=== PATIENT | male | born 1990 | race African-American/Black ===

== ENCOUNTER 2022-02-04 10:50 | Emergency (ER) | payer OTHER, SELFPAY ==
[2022-02-04 11:02] VITALS: BP 134/76; PULSE 70; RESP 16; TEMP 36.6; O2SAT 99
--- NOTE | 2022-02-04 11:23 | ED.LOWEXIN ---
HPI - Extremity Injury (Lower) General Chief Complaint: Extremity Injury, Lower Stated Complaint: Right Foot Pain Time Seen by Provider: 02/04/22 11:24 Source: patient Mode of arrival: ambulatory Limitations: no limitations History of Present Illness HPI Narrative: 31-year-old male presents with pain to right foot. States that 2 days ago he was walking in his backyard with a flip-flop and stepped on a board with a nail sticking out of it when he lifted up his foot the nail came out of foot whole, no concern for foreign body. Patient unsure of his last tetanus. States that today pain is worse, concern for infection. 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 All systems reviewed and negative except as noted above. Review of Systems Review of Systems: CONSTITUTIONAL: Denies fever, chills, or sweats. EYES: Denies visual changes, redness, or discharge. ENT: Denies rhinorrhea, congestion, sore throat, or otalgia. CARDIOVASCULAR: Denies chest pain, palpitations, or edema. RESPIRATORY: Denies cough or dyspnea. GASTROINTESTINAL: Denies abdominal pain, nausea, vomiting, or diarrhea. GENITOURINARY: Denies dysuria or hematuria. SKIN: Denies rash or itching. Puncture wound to right foot from nail. MUSCULOSKELETAL: Denies back pain, joint pain, or myalgia. NEUROLOGIC: Denies headache, numbness, or weakness. PSYCHIATRIC: Denies anxiety or depression. All other systems reviewed are negative, except as documented in HPI. PMFSH Comments At time of signature, agree with nursing past medical, surgical, social and family history. There is no relevant family history pertinent to the presenting complaint. Exam Narrative: GENERAL: This is a well-nourished, well-developed patient, in no apparent distress. HEAD: normocephalic, atraumatic. EYES: PERRL. Sclera clear/white. Vision is grossly intact. EARS: External ears normal NOSE: External nose normal THROAT: Mucous membranes moist NECK: Neck supple, non-tender without lymphadenopathy, masses or thyromegaly. CARDIOVASCULAR: Regular rate and rhythm without murmurs, gallops, or rubs. RESPIRATORY: Clear to auscultation. Breath sounds equal bilaterally. No wheezes, rales, or rhonchi. SKIN: warm, Dry, intact with no suspicious lesions or rash, good texture and turgor. There is a puncture wound to plantar aspect of right foot. No bleeding noted. Tenderness on palpation, no erythema or drainage concerning for infection. NEURO: awake, alert, and oriented to person, place and time. There were no obvious focal neurologic abnormalities. EXTREMITIES: Normal range of motion to all extremities. Extrem: Ankle/foot/toe images: 1. Small puncture wound to plantar aspect right foot. Course Course Level of Care: Express Care Visit Vital Signs Vital signs: Vital Signs Temperature 36.6 C 02/04/22 11:02 Pulse Rate 70 02/04/22 11:02 Respiratory Rate 16 02/04/22 11:02 Blood Pressure 134/76 02/04/22 11:02 Pulse Oximetry 99 02/04/22 11:02 Temperature 36.6 C 02/04/22 11:02 Pulse Rate 70 02/04/22 11:02 Respiratory Rate 16 02/04/22 11:02 Blood Pressure 134/76 02/04/22 11:02 Pulse Oximetry 99 02/04/22 11:02 Reviewed MDM - Extremity Injury (Lower) MDM Narrative Medical decision making narrative: No repair needed to puncture wound of right foot. Will prescribe an antibiotic as a precaution to prevent infection. Will update patient's tetanus Patient is aware of diagnosis, understands and agrees to treatment plan. Anticipatory guidance given. Patient agrees to follow-up as directed and is aware of reasons to seek care at the emergency department. Portions of this record may have been created with voice recognition software Discharge Plan Discharge Clinical Impression: Puncture wound of foot, right Qualifiers: Encounter type: initial encounter Qualified Code(s): S91.331A - Puncture wound without foreign body, right foot, initial encounter Patient Dis
[2022-02-04] MEDS: TETANUS,DIPHTHERIA,AC PERTUSSIS ADULT (0.5 ML) BOOSTRIX IM (11:47)
== END 2022-02-04 11:52 | disposition home or self-care (01) ==
PROVIDERS: Emergency Provider Nurse Practitioner Family
DX: S91.331A Puncture wound without foreign body, right foot, initial encounter (principal); W45.0XXA Nail entering through skin, initial encounter; Z23 Encounter for immunization
CPT/HCPCS: 90471; 90715; 99203; G0463